=== PATIENT | female | born 1960 | race Caucasian/White ===

== ENCOUNTER 2024-04-09 11:56 | Emergency (ER) | payer SELFPAY ==
[2024-04-09] VITALS (14 sets, daily range): BP systolic 125–172; BP diastolic 60–102; BMI 23.6
--- NOTE | 2024-04-09 12:01 | ED.GENMED ---
History of Present Illness
<Imani Morton PA-C - Last Filed: 04/09/24 18:18>
General
Chief Complaint: Musculo-Skeletal Complaint
Source: patient
Exam Limitations: none
Time Seen by Provider: 04/09/24 11:59
Nursing documentation reviewed up to this point in time: agreed with
History of Present Illness
History of Present Illness:
63-year-old female with no past medical history presents to the emergency department today with concerns of right wrist pain following a fall. 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
right wrist. Patient states that when she fell, she did not hit her head or injure her neck. She denies any loss of consciousness, headache or neck pain. Patient states that after the injury, she was able to get up okay on her own. She was able
to ambulate without difficulty. She declines pain in her right elbow, denies pain in her lower extremities. She denies any allergies to any medications. She is not on a blood thinner. She was visiting the area for work today and is from
[place], and reports that she wants an orthopedic group that she follows with in that area. Patient also notes some numbness and tingling sensation in her first 3 fingers on the right side.
Review of Systems
<Imani Morton PA-C - Last Filed: 04/09/24 18:18>
Review of Systems
All Other Systems: ROS reviewed and negative except as documented in HPI and ROS
Phy Exam
<Imani Morton PA-C - Last Filed: 04/09/24 18:18>
Physical Exam
Physical Exam:
General: Patient is well appearing and in no acute distress; non-toxic
Skin: Warm and dry, no rashes or lesions
Head: Normocephalic, atraumatic
Eyes: Sclera non-icteric. EOMs intact. PERRLA.
Cardiac: Regular rate and rhythm, no murmurs
Peripheral Vascular: 2+ radial and ulnar pulses bilaterally.
Pulm: Normal respiratory effort
Musculoskeletal: Dinner fork deformity noted to right wrist, bony tenderness to palpation.
Neuro: CN II-XII intact, no focal neurologic deficits. Sensation intact to 2 point discrimination.
Psychiatric: Appropriate mood and affect.
Course
<Imani Morton PA-C - Last Filed: 04/09/24 18:18>
Orders/Labs/Results
Orders:
Orders
04/09/24 12:09
CR Wrist - Right Min 3 Views Urgent
Comment:
Reason For Exam: right wrist pain
04/09/24 12:10
Ibuprofen [Motrin] 400 mg PO NOW STA
04/09/24 12:41
Oxycodone [Roxicodone] 5 mg PO NOW STA
04/09/24 13:55
Propofol [Diprivan] 20 ml .ROUTE .STK-MED
04/09/24 15:30
Wrist, Right 2 Views CR [CR Wrist - Right Min 2 Views] Urgent
Comment:
Reason For Exam: post reduction
04/09/24 15:56
Oxycodone/Acetaminophen [Percocet 5/325] 1 tablet PO NOW STA
Vital Signs
Initial and Last Documented VS:
Initial Vital Signs
BP
125/81
04/09/24 11:57
Last Documented Vital Signs
Temp Pulse Resp BP Pulse Ox
97.9 F 76 16 141/71 99
04/09/24 16:36 04/09/24 16:36 04/09/24 16:36 04/09/24 16:36 04/09/24 16:56
<Junior Marcelino DO - Last Filed: 04/09/24 19:11>
Orders/Labs/Results
Orders:
Orders
04/09/24 12:09
CR Wrist - Right Min 3 Views Urgent
Comment:
Reason For Exam: right wrist pain
04/09/24 12:10
Ibuprofen [Motrin] 400 mg PO NOW STA
04/09/24 12:41
Oxycodone [Roxicodone] 5 mg PO NOW STA
04/09/24 13:55
Propofol [Diprivan] 20 ml .ROUTE .STK-MED
04/09/24 15:30
Wrist, Right 2 Views CR [CR Wrist - Right Min 2 Views] Urgent
Comment:
Reason For Exam: post reduction
04/09/24 15:56
Oxycodone/Acetaminophen [Percocet 5/325] 1 tablet PO NOW STA
Vital Signs
Initial and Last Documented VS:
Initial Vital Signs
BP
125/81
04/09/24 11:57
Last Documented Vital Signs
Temp Pulse Resp BP Pulse Ox
97.9 F 76 16 141/71 99
04/09/24 16:36 04/09/24 16:36 04/09/24 16:36 04/09/24 16:36 04/09/24 16:56
Procedures
<Imani Morton PA-C - Last Filed: 04/09/24 18:18>
Splinting/Sling Placement
Right Wrist:
Procedure completed by: Imani Morton PA-C
Pre-splint extermity exam: neurovascular intact
Type of splint: sugar-tong
Splint material: fiberglass
Splint checked by provider?: Yes
Type of sling: sling fitted
Normal distal neurovascular exam?: Yes
Additional information:
subjective paresthesias but sensation intact objectively
<Junior Marcelino DO - Last Filed: 04/09/24 19:11>
Moderate Sedation
ASA Risk Score: Class I
Chart and allergies reviewed: Yes
Consent for anesthesia obtained: Yes
Time out completed (validating right patient & procedure): Yes
Moderate Sedation Start Time(when first medication is given): 14:25
History of difficult intubation: No
Airway free of obstruction: Yes
Patient has a gag reflex: Yes
Patient is able to open mouth: Yes
Patient has no dentures: Yes
Patient has no loose teeth: Yes
Medication administered by Provider during Moderate Sedation: IV Propofol (mg)
Total dose administered: 60
Time drug administered: 14:25
Moderate Sedation Procedure End Time: 14:36
Joint/Fracture Reduction
Right Lower Radial Wrist:
Indication for procedure:: Colles' fracture
Procedure completed by: Dr. Chari Sidhu
Consent form signed: Yes
Joint reduced: with anesthesia sedation
Injury was: closed
Further treatement: needs further treatment
Post reduction exam: stable
Capillary Refill: normal
Normal distal neurovascular exam?: Yes
Additional information:
Postreduction images overall improved.
<Imani Morton PA-C - Last Filed: 04/09/24 18:18>
MDM/Problems Addressed
Differential Diagnosis Includes:
Differentials include distal radius fracture with distal ulnar fracture, musculoskeletal sprain/strain, hematoma,
MDM/Problems Addressed:
63-year-old female presents emergency department today with right wrist pain following falling on an outstretched hand. She slipped while at work today. On physical exam, she is a obvious bony deformity of the right wrist but good pulses,
sensation intact but does note subjective paresthesias. Her x-ray reveals a displaced comminuted angulated distal radial metaphyseal fracture with foreshortening and overriding. Attending was made aware, we discussed procedural sedation with
patient, patient's fracture successfully showing improvement in displacement and angulation with possibly a small fracture present in the ulnar styloid. Discussed findings with patient, discussed follow-up with orthopedics, patient was given CDs of
the x-rays and will follow-up with her orthopedic group. Discussed splint care, discussed return precautions, patient stable for discharge.
Chronic conditions affecting care:
n/a
Acute Exacerbation and/or Progression of Chronic Illness:
n/a
<Imani Morton PA-C - Last Filed: 04/09/24 18:18>
*Pulse Oximetry
Patient hypoxic: no
*Critical Care Note
Total Time (30-74mins, 75-104mins- exclusive of procedures): Not Applicable
Data Reviewed
Review of Other/Old Records Reveals: Records (Reviewed [facility], no previous ER physician documentation to review) and Discharge Summary (No discharge summaries in [facility] to review)
Source: patient and records
Prescriptions/Medications Considered But Not Given:
n/a
Further Testing Considered But Not Given:
n/a
<Imani Morton PA-C - Last Filed: 04/09/24 18:18>
Patient Management
Escalation/DeEscalation of care consider admission/obs:
Admit not indicated, patient stable for discharge
ED Attending Note
<Imani Morton PA-C - Last Filed: 04/09/24 18:18>
-
Portions of this chart may have been created with voice recognition software.� Occasional wrong word or��sound alike� substitutions may have occurred due to the inherent limitations of voice recognition software.
<Junior Marcelino DO - Last Filed: 04/09/24 19:11>
ED Attending Note
Patient seen and examined by attending physician: Yes
I performed the substantive portion of visit, reviewed & personally made and approve the management plan that is documented in note by myself or MARGRET.: Yes
I performed a history and physical exam of patient and discussed management with resident, I reviewed resident's note and agree with documented findings and plan of care.: Yes
ED Attending Note:
I evaluated patient at bedside and performed reduction and sedation
Discharge Plan
Departure
Patient Disposition: Home (Routine Discharge)
Date of Disposition: 04/09/24
Time of Disposition: 16:31
Patient with high blood pressure during this ER visit?: Yes
Condition: Good
Discharge Problem:
Colles' fracture of right radius
Instructions: Moderate and Deep Sedation in Adults, Colles' Fracture (DC), Splint Care, BLOOD PRESSURE
Prescriptions:
New
oxycodone-acetaminophen [Percocet] 5-325 mg tablet
1 tab PO Q6HPRN PRN (Reason: pain) Qty: 8 0RF
No Action
ibuprofen 200 mg Tablet
800 mg PO Q8HPRN PRN (Reason: mild pain)
rosuvastatin 10 mg Tablet
10 mg PO DAILY
Referrals:
UNKNOWN - PT DOES,NOT KNOW [Family Provider] -
Activity Restrictions/Additional Instructions:
For pain, I recommend taking ibuprofen. You can take 200 mg every 4-6 hours as needed, you can increase this to 400 mg every 4 hours if needed. Should you have breakthrough pain, you can take 1 Percocet tablet every 6 hours if needed. Do not take
Tylenol while taking this medication as this medication contains Tylenol.
Please return to the emergency department should you experience pallor in your arm, loss of sensation in your fingers, persistent numbness and tingling increasing pain, or any other signs or symptoms concerning to you.
Please call your orthopedic office tomorrow morning and say that you were seen in the emergency department for a displaced and comminuted distal radius fracture.
Please keep the splint dry. Please do not remove the splint until you see the orthopedist.
Interventions
Interventions:
*Risk Screen - Suicide Last Done: 04/09/24 12:02
*General Assessment Last Done: 04/09/24 16:56
*Neglect/Abuse Screening Last Done: 04/09/24 12:02
ED- Fall Risk Assessment Last Done: 04/09/24 12:19
*ED COVID-19 Vaccine History Last Done: 04/09/24 12:19
*Nursing Disposition Last Done: 04/09/24 16:56
ED-Musculoskeletal Assessment Last Done: 04/09/24 12:03
Discharge Date and Time
Discharge Date/Time: 04/09/24 16:59
Print Language: MAURITANIAN
[2024-04-09] MEDS: MOTRIN 400 MG PO (12:12)
[2024-04-09] MEDS: ROXICODONE 5 MG PO (12:50)
[2024-04-09] MEDS: PERCOCET 5/325 1 TABLET PO (15:59)
== END 2024-04-09 16:59 | disposition home or self-care (01) ==
LOC: EMR 11:56
PROVIDERS: EMERGENCY PHYSICIAN Emergency Medicine
DX: S52.531A Colles' fracture of right radius, initial encounter for closed fracture (principal); W01.0XXD Fall on same level from slipping, tripping and stumbling without subsequent striking against object, subsequent encounter
CPT/HCPCS: 25605; 99285; 99152; 73100; 73110